=== PATIENT | male | born 1930 | race Native Hawaiian/Other Pacific Islander ===

== ENCOUNTER 2016-07-08 09:05 | Inpatient (IN) | payer OTHER ==
[~2016-07-08 09:05] MED LIST: CARV25TA PO; CETI10TA PO; LEVOTHROID50 MCG PO; LEVOTHYROXIN100 MC1 PO; MICROZIDE12.5 MG PO; MOBIC7.5 M1 PO; OMEPRAZOLE20 M1 PO; OXYBUTYNIN10 MG PO; PRAV40TA PO
== END 2016-08-08 08:00 | disposition still patient (30) ==
LOC: PAVB 09:05
PROVIDERS: ADMIT Internal Medicine
DX: Z51.89 Encounter for other specified aftercare (principal)

== ENCOUNTER 2016-08-08 09:00 | Inpatient (IN) | payer OTHER | END 2016-09-08 10:54 | disposition still patient (30) | LOC: PAVB 09:00 | PROVIDERS: ADMIT Internal Medicine | DX: Z51.89 Encounter for other specified aftercare (principal) ==

== ENCOUNTER 2016-08-09 07:01 | Outpatient (CLI) | payer OTHER ==
[2016-08-09 08:06] LABS: PLATELET COUNT 173 K/uL (142-355)
[2016-08-09 08:50] LABS: POTASSIUM 4.6 mmol/L (3.6-5.2)
== END 2016-08-09 19:18 | disposition home or self-care (01) ==
LOC: LAB 07:01
PROVIDERS: Internal Medicine
DX: E78.4 Other hyperlipidemia (principal); E03.8 Other specified hypothyroidism; I10 Essential (primary) hypertension
CPT/HCPCS: 36415; 80053; 80061; 84443; 85027

== ENCOUNTER 2016-09-08 11:45 | Inpatient (IN) | payer OTHER | END 2016-10-06 12:34 | disposition still patient (30) | LOC: PAVB 11:45 | PROVIDERS: ADMIT Internal Medicine | DX: Z51.89 Encounter for other specified aftercare (principal) ==

== ENCOUNTER 2016-10-06 12:49 | Inpatient (IN) | payer OTHER | END 2016-11-06 08:10 | disposition still patient (30) | LOC: PAVB 12:49 | PROVIDERS: ADMIT Internal Medicine | DX: Z51.89 Encounter for other specified aftercare (principal) ==

== ENCOUNTER 2016-10-07 06:34 | Outpatient (CLI) | payer OTHER | END 2016-10-07 19:28 | disposition home or self-care (01) | LOC: LAB 06:34 | DX: E03.8 Other specified hypothyroidism (principal) | CPT/HCPCS: 36415; 84443 ==

== ENCOUNTER 2016-11-06 09:08 | Inpatient (IN) | payer OTHER | END 2016-12-06 09:18 | disposition still patient (30) | LOC: PAVB 09:08 | PROVIDERS: ADMIT Internal Medicine | DX: Z51.89 Encounter for other specified aftercare (principal) ==

== ENCOUNTER 2016-11-24 12:55 | Outpatient (CLI) | payer OTHER | END 2016-11-24 19:07 | disposition home or self-care (01) | LOC: LAB 12:55 | DX: Z16.24 Resistance to multiple antibiotics (principal) | CPT/HCPCS: 87081 ==

== ENCOUNTER 2016-12-06 10:34 | Inpatient (IN) | payer OTHER | END 2017-01-06 10:16 | disposition still patient (30) | LOC: PAVB 10:34 | PROVIDERS: ADMIT Internal Medicine | DX: Z51.89 Encounter for other specified aftercare (principal) ==

== ENCOUNTER 2017-01-06 10:31 | Inpatient (IN) | payer OTHER | END 2017-02-05 15:26 | disposition still patient (30) | LOC: PAVB 10:31 | PROVIDERS: ADMIT Internal Medicine | DX: Z51.89 Encounter for other specified aftercare (principal) ==

== ENCOUNTER 2017-02-05 16:01 | Inpatient (IN) | payer OTHER | END 2017-03-08 09:48 | disposition still patient (30) | LOC: PAVB 16:01 | PROVIDERS: ADMIT Internal Medicine | DX: Z51.89 Encounter for other specified aftercare (principal) ==

== ENCOUNTER 2017-02-07 07:45 | Outpatient (CLI) | payer OTHER ==
[2017-02-07 09:21] LABS: PLATELET COUNT 140 K/uL (142-355)
[2017-02-07 09:47] LABS: POTASSIUM 4.5 mmol/L (3.6-5.2)
== END 2017-02-07 08:45 | disposition home or self-care (01) ==
LOC: LAB 07:45
PROVIDERS: Internal Medicine
DX: E78.4 Other hyperlipidemia (principal); E03.8 Other specified hypothyroidism; I10 Essential (primary) hypertension
CPT/HCPCS: 80053; 80061; 84443; 85027

== ENCOUNTER 2017-03-08 11:25 | Inpatient (IN) | payer OTHER | END 2017-04-08 08:45 | disposition still patient (30) | LOC: PAVB 11:25 | PROVIDERS: ADMIT Internal Medicine | DX: Z51.89 Encounter for other specified aftercare (principal) ==

== ENCOUNTER 2017-04-08 09:35 | Inpatient (IN) | payer OTHER | END 2017-05-08 10:10 | disposition still patient (30) | LOC: PAVB 09:35 | PROVIDERS: ADMIT Internal Medicine | DX: Z51.89 Encounter for other specified aftercare (principal) ==

== ENCOUNTER 2017-05-08 10:22 | Inpatient (IN) | payer OTHER | END 2017-06-08 13:04 | disposition still patient (30) | LOC: PAVB 10:22 | PROVIDERS: ADMIT Internal Medicine ==

== ENCOUNTER 2017-06-08 14:12 | Inpatient (IN) | payer OTHER | END 2017-07-08 09:24 | disposition still patient (30) | LOC: PAVB 14:12 | PROVIDERS: ADMIT Internal Medicine ==

== ENCOUNTER 2017-07-08 10:03 | Inpatient (IN) | payer OTHER | END 2017-08-08 09:44 | disposition still patient (30) | LOC: PAVB 10:03 | PROVIDERS: ADMIT Internal Medicine ==

== ENCOUNTER 2017-08-08 10:50 | Inpatient (IN) | payer OTHER | END 2017-09-08 09:59 | disposition still patient (30) | LOC: PAVB 10:50 | PROVIDERS: ADMIT Internal Medicine ==

== ENCOUNTER 2017-08-11 11:28 | Outpatient (CLI) | payer OTHER ==
[2017-08-11 12:08] LABS: PLATELET COUNT 167 K/uL (142-355)
[2017-08-11 12:26] LABS: POTASSIUM 4.1 mmol/L (3.6-5.2)
== END 2017-08-11 22:40 | disposition home or self-care (01) ==
LOC: LAB 11:28
PROVIDERS: Internal Medicine
DX: I10 Essential (primary) hypertension (principal); E78.4 Other hyperlipidemia; E03.8 Other specified hypothyroidism
CPT/HCPCS: 80053; 80061; 84443; 85027

== ENCOUNTER 2017-09-08 11:05 | Inpatient (IN) | payer OTHER | END 2017-10-06 09:23 | disposition still patient (30) | LOC: PAVB 11:05 | PROVIDERS: ADMIT Internal Medicine ==

== ENCOUNTER 2017-10-06 10:28 | Inpatient (IN) | payer OTHER | END 2017-11-06 08:00 | disposition still patient (30) | LOC: PAVB 10:28 | PROVIDERS: ADMIT Internal Medicine ==

== ENCOUNTER 2017-11-06 09:00 | Inpatient (IN) | payer OTHER | END 2017-12-06 09:09 | disposition still patient (30) | LOC: PAVB 09:00 | PROVIDERS: ADMIT Internal Medicine ==

== ENCOUNTER 2017-12-06 10:11 | Inpatient (IN) | payer OTHER | END 2018-01-06 08:56 | disposition still patient (30) | LOC: PAVB 10:11 | PROVIDERS: ADMIT Internal Medicine ==

== ENCOUNTER 2017-12-13 15:32 | Outpatient (CLI) | payer OTHER ==
[2017-12-13 15:59] LABS: PLATELET COUNT 176 K/uL (142-355)
[2017-12-13 16:20] LABS: POTASSIUM 4.6 mmol/L (3.6-5.2)
== END 2017-12-13 20:01 | disposition home or self-care (01) ==
LOC: LAB 15:32
PROVIDERS: Internal Medicine
DX: R06.02 Shortness of breath (principal)
CPT/HCPCS: 80048; 83880; 85027

== ENCOUNTER 2018-01-06 10:08 | Inpatient (IN) | payer OTHER | END 2018-02-05 15:02 | disposition still patient (30) | LOC: PAVB 10:08 | PROVIDERS: ADMIT Internal Medicine ==

== ENCOUNTER 2018-01-12 12:47 | Outpatient (CLI) | payer OTHER ==
[2018-01-12 13:20] LABS: PLATELET COUNT 196 K/uL (142-355)
[2018-01-12 13:54] LABS: POTASSIUM 4.9 mmol/L (3.6-5.2)
== END 2018-01-12 20:31 | disposition home or self-care (01) ==
LOC: LAB 12:47 → RAD 12:47 → LAB 20:31
PROVIDERS: Internal Medicine
DX: R50.9 Fever, unspecified (principal); R05 Cough; R06.09 Other forms of dyspnea
CPT/HCPCS: 80053; 81000; 85027; 87088

== ENCOUNTER 2018-02-05 15:54 | Inpatient (IN) | payer OTHER | END 2018-03-08 08:00 | disposition still patient (30) | LOC: PAVB 15:54 | PROVIDERS: ADMIT Internal Medicine ==

== ENCOUNTER 2018-02-10 07:35 | Outpatient (CLI) | payer OTHER ==
[2018-02-10 07:52] LABS: PLATELET COUNT 184 K/uL (142-355)
[2018-02-10 08:16] LABS: POTASSIUM 5.2 mmol/L (3.6-5.2)
== END 2018-02-10 19:04 | disposition home or self-care (01) ==
LOC: LAB 07:35
PROVIDERS: Internal Medicine
DX: I10 Essential (primary) hypertension (principal); E03.8 Other specified hypothyroidism
CPT/HCPCS: 80053; 80061; 84443; 85027

== ENCOUNTER 2018-02-14 09:19 | Outpatient (CLI) | payer OTHER | END 2018-02-14 19:03 | disposition home or self-care (01) | LOC: US 09:19 | DX: R74.8 Abnormal levels of other serum enzymes (principal) ==

== ENCOUNTER 2018-03-08 09:00 | Inpatient (IN) | payer OTHER | END 2018-04-08 10:21 | disposition still patient (30) | LOC: PAVB 09:00 | PROVIDERS: ADMIT Internal Medicine ==

== ENCOUNTER 2018-03-12 10:42 | Outpatient (CLI) | payer OTHER ==
[2018-03-12 11:07] LABS: PLATELET COUNT 158 K/uL (142-355)
== END 2018-03-12 19:20 | disposition home or self-care (01) ==
LOC: RAD 10:42
PROVIDERS: Internal Medicine
DX: R09.3 Abnormal sputum (principal)
CPT/HCPCS: 85027

== ENCOUNTER 2018-04-03 10:01 | Outpatient (CLI) | payer OTHER ==
[2018-04-03 10:33] LABS: PLATELET COUNT 132 K/uL (142-355)
[2018-04-03 10:38] LABS: POTASSIUM 4.6 mmol/L (3.6-5.2)
== END 2018-04-03 20:39 | disposition home or self-care (01) ==
LOC: RAD 10:01 → LAB 10:01 → RAD 20:39
PROVIDERS: Internal Medicine
DX: R09.89 Other specified symptoms and signs involving the circulatory and respiratory systems (principal); R05 Cough
CPT/HCPCS: 80053; 85027

== ENCOUNTER 2018-04-04 10:20 | Outpatient (CLI) | payer OTHER | END 2018-04-04 23:51 | disposition home or self-care (01) | LOC: US 10:20 | DX: R74.8 Abnormal levels of other serum enzymes (principal); R68.89 Other general symptoms and signs ==

== ENCOUNTER 2018-04-05 13:57 | Outpatient (CLI) | payer OTHER | END 2018-04-05 23:58 | disposition home or self-care (01) | LOC: LAB 13:57 | DX: R79.89 Other specified abnormal findings of blood chemistry (principal) | CPT/HCPCS: 84080 ==

== ENCOUNTER 2018-04-08 10:35 | Inpatient (IN) | payer OTHER | END 2018-04-21 13:00 | disposition E | LOC: PAVB 10:35 | PROVIDERS: ADMIT Internal Medicine | CPT/HCPCS: 93005 ==

== ENCOUNTER 2018-04-10 16:13 | Outpatient (CLI) | payer OTHER | END 2018-04-10 19:15 | disposition home or self-care (01) | LOC: LAB 16:13 | DX: R10.84 Generalized abdominal pain (principal) | CPT/HCPCS: 81000 ==

== ENCOUNTER 2018-04-12 08:25 | Outpatient (CLI) | payer OTHER | END 2018-04-12 19:24 | disposition home or self-care (01) | LOC: LAB 08:25 | DX: N40.0 Benign prostatic hyperplasia without lower urinary tract symptoms (principal) | CPT/HCPCS: 84153 ==

== ENCOUNTER 2018-04-17 21:17 | Outpatient (CLI) | payer OTHER, MEDICARE | END 2018-04-17 23:25 | disposition home or self-care (01) | LOC: LAB 21:17 | DX: R07.9 Chest pain, unspecified (principal) | CPT/HCPCS: 36415; 82550; 84484 ==

== ENCOUNTER 2018-04-18 14:00 | Outpatient (CLI) | payer OTHER, MEDICARE ==
[2018-04-18 14:22] LABS: PLATELET COUNT 199 K/uL (142-355)
== END 2018-04-18 22:26 | disposition home or self-care (01) ==
LOC: LAB 14:00 → RAD 14:00
PROVIDERS: Internal Medicine
DX: R60.0 Localized edema (principal); R06.02 Shortness of breath
CPT/HCPCS: 83880; 85027

== ENCOUNTER 2018-04-19 09:18 | Emergency (ER) | payer OTHER, MEDICARE ==
[~2018-04-19] VITALS: Ht 30.5 cm; Wt 0.5 kg
[2018-04-19 09:17] VITALS: TEMP 97.9
[2018-04-19 10:05] LABS: PLATELET COUNT 192 K/uL (142-355)
[2018-04-19 10:37] LABS: POTASSIUM 4.6 mmol/L (3.6-5.2)
[2018-04-19 12:10] VITALS: BP 58/26
== END 2018-04-19 13:35 | disposition short-term general hospital (02) ==
LOC: ED 09:18
PROVIDERS: Emergency Medicine
DX: I21.9 Acute myocardial infarction, unspecified (principal); R06.02 Shortness of breath
CPT/HCPCS: 31500; 36415; 36600; 51702; 80053; 81000; 82550; 82553; 82805; 84484; 85027; 85379; 92950; 93005; 94002; 94003; 94664; 96360; 96361; 96365; 96366; 96375; 96376; 99291; J0171; J1265; J1644; J1885; J2060; J2405; J2930; J3490